=== PATIENT | female | born 1940 | race Two or more races ===

== ENCOUNTER 2017-10-01 12:42 | Emergency (ER) | payer MEDICARE, OTHER ==
[~2017-10-01] VITALS: Ht 172.7 cm; Wt 73.0 kg
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
--- NOTE | 2017-10-01 13:47 | NUR ---
PT BACK FROM CT
--- NOTE | 2017-10-01 14:04 | NUR ---
Patient discharged to home in stable condition. Written and verbal after care instructions given. Patient verbalizes understanding of instruction.
[2017-10-01 14:09] VITALS: BP 140/80
== END 2017-10-01 14:23 | disposition home or self-care (01) ==
LOC: ER 12:45
DX: S09.8XXA Other specified injuries of head, initial encounter (principal); I10 Essential (primary) hypertension; V43.52XA Car driver injured in collision with other type car in traffic accident, initial encounter; Y93.89 Activity, other specified; Y92.89 Other specified places as the place of occurrence of the external cause; Y99.8 Other external cause status
CPT/HCPCS: 70450; 99284; A4606; Z7610